=== PATIENT | female | born 1955 | race Caucasian/White ===

== ENCOUNTER 2021-12-26 13:25 | Outpatient (CLI) | payer MEDICARE, SELFPAY ==
--- NOTE | 2021-12-26 13:43 | US_ITS ---
WS: [id number] RENAL ULTRASOUND HISTORY: PROTEINURIA/HTN/TYPE 2 DM COMPARISON: None available. TECHNIQUE: 2-D and color Doppler imaging of the kidney submitted. Right kidney: 11.6 cm x 4.5 cm x 5.9 cm. Normal echogenicity and size. There is a very small cortical cyst measuring 7 x 7 x 7 mm in the infer ior pole RIGHT kidney. No solid mass. No obstruction. Left kidney: 11.1 cm x 5.3 cm x 3.6 cm. Normal size kidney with no obstruction. LEFT renal cyst in the superior pole measures 2.7 x 2.0 x 2.2 cm. No solid mass. No hydronephrosis. Aorta: Normal. Urinary Bladder: Well-distended urinary bladder. No intraluminal filling defects. US/US renal BI* [id number] IMPRESSION: 1. No renal obstruction or solid mass. 2. Bilateral renal cysts.
== END 2021-12-26 13:26 | disposition home or self-care (01) ==
PROVIDERS: PCP Family Medicine; Visit Provider Family Medicine
DX: R80.9 Proteinuria, unspecified (principal); I10 Essential (primary) hypertension; E11.9 Type 2 diabetes mellitus without complications; Q61.02 Congenital multiple renal cysts
CPT/HCPCS: 76770

== ENCOUNTER 2022-06-07 14:19 | Outpatient (CLI) | payer MEDICARE, SELFPAY ==
[2022-06-07 15:26] LABS: Bacteria Urine 3+ /hpf; Bilirubin Urine Neg (Negative); Blood Urine 2+ (Negative); Glucose Urine UA 4+ (Normal); Ketones Urine 1+ (Negative); Leukocyte Esterase Urine 2+ (Negative); Nitrate Urine Negative (Negative); Protein Urine Neg (Negative); RBC Urine 0-4 /hpf (0-2); Renal Epithelial Cells Urine 0-4 /hpf; Specific Gravity, Urine 1.005 (1.005-1.030); Squamous Epithelial Cell Urine 0-4 /hpf (0-5); Transitional Epi Cells Urine 0-4 /hpf; Urine Appearance Clear (CLEAR); Urine Color Yellow (Yellow); Urobilinogen Urine Norm (Negative); WBC Urine 25-40 /hpf (0-5); pH Urine 6.5 (5-7)
[2022-06-07 15:27] LABS: Add Urine Culture? Yes; Hyaline Casts Urine 0-4 /lpf; Other Casts Urine 0-4 /lpf
[2022-06-07 15:32] LABS: Albumin Level 3.5 g/dL (3.5-5.2); Anion Gap 14.7 (5-19); Blood Urea Nitrogen 18 mg/dL (8-23); Calcium 9.4 mg/dL (8.5-10.5); Carbon Dioxide 29 mmol/L (22-29); Chloride 98 mmol/L (98-107); Glucose 168 mg/dL (65-115); Phosphorus 4.3 mg/dL (2.5-4.5); Potassium 4.7 mmol/L (3.5-5.1); Sodium 137 mmol/L (136-145)
[2022-06-07 15:42] LABS: Creatinine Urine, Random 25 mg/dL (28-217)
[2022-06-07 16:05] LABS: Microalbum Creatinine Ratio Ur 2320 mg/dL (0-20); Microalbumin Random Urine 58 ug/dL (0-20)
[2022-06-08 10:07] LABS: PROTEIN, TOTAL 7.4 g/dL (6.1-8.1)
[2022-06-08 14:27] LABS: KAPPA/LAMBDA LIGHT CHAINS FREE 1.37 (0.26-1.65); LAMBDA LIGHT CHAIN, FREE, SERU 45.3 mg/L (5.7-26.3)
[2022-06-08 15:52] LABS: ALBUMIN 3.5 g/dL (3.8-4.8); ALPHA 1 GLOBULIN 0.3 g/dL (0.2-0.3); BETA 1 GLOBULIN 0.5 g/dL (0.4-0.6); BETA 2 GLOBULIN 0.6 g/dL (0.2-0.5); GAMMA GLOBULIN 1.5 g/dL (0.8-1.7)
== END 2022-06-07 14:20 | disposition home or self-care (01) ==
PROVIDERS: PCP Family Medicine; Visit Provider Internal Medicine Nephrology
DX: R80.1 Persistent proteinuria, unspecified; E11.29 Type 2 diabetes mellitus with other diabetic kidney complication
CPT/HCPCS: 80069; 81001; 82044; 83883; 84155; 84165

== ENCOUNTER 2022-06-19 11:41 | Outpatient (CLI) | payer MEDICARE, SELFPAY ==
[2022-06-19 12:54] LABS: Add Urine Culture? No; Bacteria Urine TRACE /hpf; Bilirubin Urine Neg (Negative); Blood Urine Neg (Negative); Glucose Urine UA 4+ (Normal); Ketones Urine Negative (Negative); Leukocyte Esterase Urine Negative (Negative); Nitrate Urine Negative (Negative); Protein Urine 1+ (Negative); Urine Appearance Clear (CLEAR); Urine Color Straw (Yellow); Urobilinogen Urine Norm (Negative); WBC Urine RARE /hpf (0-5); pH Urine 5 (5-7)
== END 2022-06-19 11:42 | disposition home or self-care (01) ==
LOC: LAB 11:42
PROVIDERS: PCP Family Medicine; Visit Provider Nurse Practitioner Family
DX: R80.1 Persistent proteinuria, unspecified (principal); E11.29 Type 2 diabetes mellitus with other diabetic kidney complication
CPT/HCPCS: 81001

== ENCOUNTER 2022-12-20 09:29 | Outpatient (CLI) | payer MEDICARE, SELFPAY ==
[2022-12-20 10:38] LABS: Basophils # 0.1 10^3/uL (0.0-0.1); Basophils % 0.9 %; Eosinophils # 0.2 10^3/uL (0.0-0.8); Eosinophils % 2.5 %; Hematocrit 40.2 % (37.0-47.0); Hemoglobin 13.4 g/dL (11.5-15.3); Lymphocytes # 1.6 10^3/uL (0.8-4.8); Lymphocytes % 24.4 %; Mean Corpuscular HGB Conc 33.3 g/dL (30.0-36.0); Mean Corpuscular Hemoglobin 31.5 pg (28.0-34.0); Mean Corpuscular Volume 94.4 fl (81-99); Mean Platelet Volume 10.1 fL (7.4-10.4); Monocytes # 0.5 10^3/uL (0.2-0.9); Monocytes % 7.8 %; Neutrophils # 4.28 10^3/uL (1.8-7.7); Neutrophils % 64.1 %; Nucleated Red Blood Cells % 0 %; Platelet Count 297 10^3/cmm (130-400); Red Blood Count 4.26 10^6/uL (4.1-5.3); Red Cell Distribution Width 13.5 % (12.1-15.1); White Blood Count 6.7 10^3/uL (4.0-10.0)
[2022-12-20 11:00] LABS: Alanine Aminotransferase 29 U/L (0-33); Albumin Level 3.9 g/dL (3.5-5.2); Alkaline Phosphatase 50 U/L (35-105); Anion Gap 17.6 (5-19); Aspartate Amino Transferase 23 U/L (0-32); Blood Urea Nitrogen 34 mg/dL (8-23); Calcium 8.8 mg/dL (8.5-10.5); Carbon Dioxide 28 mmol/L (22-29); Chloride 97 mmol/L (98-107); Globulin 3.6 g/dL (1.3-4.6); Glomerular Filtration Rate 62.1 mL/min (90-130); Glucose 176 mg/dL (65-115); Osmolality Calculated 298 mOsm/kg (285-295); Potassium 4.6 mmol/L (3.5-5.1); Sodium 138 mmol/L (136-145); Total Bilirubin 0.4 mg/dL (0.15-1.2); Total Protein 7.5 g/dL (6.6-8.7)
[2022-12-20 11:03] LABS: Creatinine Urine, Random 26 mg/dL (28-217); Microalbumin Random Urine 7 ug/dL (0-20)
[2022-12-20 11:04] LABS: Urine Creatinine 25 mg/dL (28-217); Urine Protein Random 11 mg/dL
[2022-12-20 11:07] LABS: Microalbum Creatinine Ratio Ur 269 mg/dL (0-20); UPRO/UCREAT Ratio 0.44 mg/mg CR
[2022-12-20 11:15] LABS: 25 Hydroxy Vitamin D 31 ng/mL (30-100); Calcium 9.2 mg/dL (8.5-10.5); Parathyroid Hormone 68.8 pg/mL (15-65)
== END 2022-12-20 09:30 | disposition home or self-care (01) ==
PROVIDERS: PCP Family Medicine; Visit Provider Registered Nurse
DX: N18.31 Chronic kidney disease, stage 3a (principal)
CPT/HCPCS: 36415; 80053; 82044; 82306; 82310; 82570; 83970; 84156; 85025